=== PATIENT | male | born 1995 | race Caucasian/White ===

== ENCOUNTER 2021-12-19 17:35 | Emergency (ER) | payer SELFPAY ==
--- NOTE | 2021-12-19 18:20 | EDPHYS ---
Physician Documentation [facility] Name: Taras Newman Age: 26 yrs Sex: Male : 1995 Arrival Date: 12/19/2021 Time: 17:36 Bed 11 Private MD: GAUDENCIO Physician Shahab Reyes HPI: 12/19 18:14 This 26 yrs old Male presents to ER via Ambulatory with complaints of Sore yadira Throat. 18:14 The patient presents with sore throat. The patient describes throat pain as constant. yadira Onset: The symptoms/episode began/occurred 2 day(s) ago. Severity of symptoms: At their worst the symptoms were mild, in the emergency department the symptoms are unchanged. Modifying factors: The symptoms are alleviated by nothing, the symptoms are aggravated by swallowing. Associated signs and symptoms: Pertinent positives: chills, cough, fever. The patient has experienced similar episodes in the past, a few times. Historical: - Allergies: 17:42 No Known Allergies; ld1 - Home Meds: 17:42 None [Active]; ld1 - PMHx: 17:42 None; ld1 - PSHx: 17:42 None; ld1 - Immunization history:: Adult Immunizations up to date, Client reports having NOT received the Covid vaccine. - Social history:: Smoking status: Patient denies any tobacco usage or history of. Patient/guardian denies using alcohol. - Family history:: not pertinent. ROS: 18:14 Constitutional: Negative for fever, chills, and weight loss, Eyes: Negative for injury, yadira pain, redness, and discharge, Neck: Negative for injury, pain, and swelling, Cardiovascular: Negative for chest pain, palpitations, and edema, Respiratory: Negative for shortness of breath, cough, wheezing, and pleuritic chest pain, Abdomen/GI: Negative for abdominal pain, nausea, vomiting, diarrhea, and constipation, Back: Negative for injury and pain, : Negative for injury, bleeding, discharge, and swelling, MS/Extremity: Negative for injury and deformity, Skin: Negative for injury, rash, and discoloration, Neuro: Negative for headache, weakness, numbness, tingling, and seizure, Psych: Negative for depression, anxiety, suicide ideation, homicidal ideation, and hallucinations, Allergy/Immunology: Negative for hives, rash, and allergies, Endocrine: Negative for neck swelling, polydipsia, polyuria, polyphagia, and marked weight changes, Hematologic/Lymphatic: Negative for swollen nodes, abnormal bleeding, and unusual bruising. 18:14 ENT: Positive for sore throat. Exam: 18:14 Constitutional: This is a well developed, well nourished patient who is awake, alert, yadira and in no acute distress. Head/Face: Normocephalic, atraumatic. Eyes: Pupils equal round and reactive to light, extra-ocular motions intact. Lids and lashes normal. Conjunctiva and sclera are non-icteric and not injected. Cornea within normal limits. Periorbital areas with no swelling, redness, or edema. Neck: Trachea midline, no thyromegaly or masses palpated, and no cervical lymphadenopathy. Supple, full range of motion without nuchal rigidity, or vertebral point tenderness. No Meningismus. Chest/axilla: Normal chest wall appearance and motion. Nontender with no deformity. No lesions are appreciated. Cardiovascular: Regular rate and rhythm with a normal S1 and S2. No gallops, murmurs, or rubs. Normal PMI, no JVD. No pulse deficits. Respiratory: Lungs have equal breath sounds bilaterally, clear to auscultation and percussion. No rales, rhonchi or wheezes noted. No increased work of breathing, no retractions or nasal flaring. Abdomen/GI: Soft, non-tender, with normal bowel sounds. No distension or tympany. No guarding or rebound. No evidence of tenderness throughout. Back: No spinal tenderness. No costovertebral tenderness. Full range of motion. Skin: Warm, dry with normal turgor. Normal color with no rashes, no lesions, and no evidence of cellulitis. MS/ Extremity: Pulses equal, no cyanosis. Neurovascular intact. Full, normal range of motion. Neuro: Awake and alert, GCS 15, oriented to person, place, time, and situation. Cranial nerves II-XII grossly intact. Motor strength 5/5 in all extremities. Sensory grossly intact. Cerebellar exam normal. Normal gait. Psych: Awake, alert, with orientation to person, place and time. Behavior, mood, and affect are within normal limits. 18:14 ENT: Posterior pharynx: Airway: normal, no evidence of obstruction, Tonsils: bilaterally enlarged, with erythema, with exudate, Uvula: normal, midline, swelling, that is mild, erythema, that is mild, exudate, is not appreciated, peritonsillar mass, is noted on the right, pooling of secretions, is not appreciated. Vital Signs: 17:41 Weight 66.68 kg; Height 6 ft. 0 in. (182.88 cm); Pain 0/10; ld1 17:49 BP 129 / 68; Pulse 80; Resp 18; Temp 98.4; Pulse Ox 100% on R/A; em6 17:41 Body Mass Index 19.94 (66.68 kg, 182.88 cm) ld1 MDM: 17:37 [facility]17 Differential diagnosis: group A strep tonsillitis, influenza, laryngitis, pharyngitis, yaidra tonsillitis, upper respiratory infection, uvulitis, viral syndrome. Data reviewed: vital signs, nurses notes, lab test result(s), Flu:. 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 rate is 80 beats/min, rhythm is normal sinus rhythm, Pulse oximetry: on room air is 100 %. Counseling: I had a detailed discussion with the patient and/or guardian regarding: the historical points, exam findings, and any diagnostic results supporting the discharge/admit diagnosis, lab results. 12/19 17:43 Order name: Flu [facility] 12/19 17:43 Order name: Strep [facility] 12/19 17:43 Order name: SARS-COV-2 RT PCR (Document "Date of Onset" if Symptomatic) [facility] 12/19 18:19 Order name: Throat Culture EDMS Administered Medications: 18:22 Drug: Zithromax (azithromycin) 500 mg Route: PO; em6 18:37 Follow up: Response: No adverse reaction em6 18:22 Drug: Rocephin (cefTRIAXone) 1 grams Route: IM; Site: right gluteus; em6 18:37 Follow up: Response: No adverse reaction em6 Disposition Summary: 12/19/21 18:18 Discharge Ordered Location: Home yadira Problem: new yadira Symptoms: have improved yadira Condition: Stable yadira Diagnosis - Acute tonsillitis, unspecified yadira - Acute pharyngitis, unspecified yadira Followup: yadira - With: Private Physician - When: 2 - 3 days - Reason: Recheck today's complaints, Continuance of care, Re-evaluation by your physician Discharge Instructions: - Discharge Summary Sheet yadira - Pharyngitis yadira - Sore Throat yadira - Tonsillitis yadira - Tonsillitis, [id number] yadira - Sore Throat, [id number] yadira Forms: - Medication Reconciliation Form yadira - Thank You Letter yadira - Antibiotic Education yadira - Prescription Opioid Use ydaira Prescriptions: - Zithromax 500 mg Oral Tablet - take 1 tablet by ORAL route once daily for 4 days; 4 tablet; Refills: 0, yadira Product Selection Permitted Signatures: Dispatcher [employer] EDShahab Mo MD MD cha Dibbern, Lauren, RN RN ld1 Maria M Ring RN RN em6
--- NOTE | 2021-12-19 18:20 | ER ---
Nurse's Notes [facility] Name: Taras Newman Age: 26 yrs Sex: Male : 1995 Arrival Date: 12/19/2021 Time: 17:36 Bed 11 Private MD: Diagnosis: Acute tonsillitis, unspecified;Acute pharyngitis, unspecified Presentation: 12/19 17:41 Chief complaint: Patient states: Sore throat X 3 days, fatigue, chills. Coronavirus ld1 screen: Client presents with at least one sign or symptom that may indicate coronavirus-19. Standard/surgical mask placed on the client. Ebola Screen: No symptoms or risks identified at this time. Initial Sepsis Screen: Does the patient meet any 2 criteria? No. Patient's initial sepsis screen is negative. Does the patient have a suspected source of infection? No. Patient's initial sepsis screen is negative. Risk Assessment: Do you want to hurt yourself or someone else? Patient reports no desire to harm self or others. Onset of symptoms was December 19, 2021 at 17:42. 17:41 Method Of Arrival: Ambulatory ld1 17:41 Acuity: TIM 4 ld1 Triage Assessment: 17:42 General: Appears in no apparent distress. comfortable, Behavior is calm, cooperative, ld1 appropriate for age. Pain: Denies pain. EENT: Reports pain in uvula, left aspect of posterior pharynx and right aspect of posterior pharynx. Neuro: Level of Consciousness is awake, alert, obeys commands, Oriented to person, place, time, situation. Cardiovascular: Capillary refill < 3 seconds Patient's skin is warm and dry. Respiratory: Airway is patent Respiratory effort is even, unlabored. GI: Abdomen is flat, non-distended. : No signs and/or symptoms were reported regarding the genitourinary system. Derm: No signs and/or symptoms reported regarding the dermatologic system. Musculoskeletal: No signs and/or symptoms reported regarding the musculoskeletal system. Historical: - Allergies: 17:42 No Known Allergies; ld1 - Home Meds: 17:42 None [Active]; ld1 - PMHx: 17:42 None; ld1 - PSHx: 17:42 None; ld1 - Immunization history:: Adult Immunizations up to date, Client reports having NOT received the Covid vaccine. - Social history:: Smoking status: Patient denies any tobacco usage or history of. Patient/guardian denies using alcohol. - Family history:: not pertinent. Screenin:47 Abuse screen: Denies threats or abuse. Nutritional screening: No deficits noted. em6 Tuberculosis screening: No symptoms or risk factors identified. Fall Risk Total Doty Fall Scale indicates No Risk (0-24 pts). Assessment: 17:47 Reassessment: see triage for assessment. Respiratory: Airway is patent Respiratory em6 effort is even, unlabored, Respiratory pattern is regular, symmetrical, Breath sounds are clear bilaterally. 17:47 EENT: Throat is reddened. em6 Vital Signs: 17:41 Weight 66.68 kg; Height 6 ft. 0 in. (182.88 cm); Pain 0/10; ld1 17:49 BP 129 / 68; Pulse 80; Resp 18; Temp 98.4; Pulse Ox 100% on R/A; em6 17:41 Body Mass Index 19.94 (66.68 kg, 182.88 cm) ld1 ED Course: 17:36 Patient arrived in ED. am2 17:37 Shahab Reyes MD is Attending Physician. [facility] 17:42 Triage completed. ld1 17:42 Arm band placed on right wrist. ld1 17:44 Maria M Ring, RN is Primary Nurse. em6 17:47 Bed in low position. Call light in reach. Side rails up X 1. Warm blanket given. em6 17:59 Strep Sent. em6 17:59 Flu Sent. em6 17:59 SARS-COV-2 RT PCR (Document "Date of Onset" if Symptomatic) Sent. em6 18:37 No provider procedures requiring assistance completed. Patient did not have IV access em6 during this emergency room visit. Administered Medications: 18:22 Drug: Zithromax (azithromycin) 500 mg Route: PO; em6 18:37 Follow up: Response: No adverse reaction em6 18:22 Drug: Rocephin (cefTRIAXone) 1 grams Route: IM; Site: right gluteus; em6 18:37 Follow up: Response: No adverse reaction em6 Medication: 18:37 VIS not applicable for this client. em6 Outcome: 18:18 Discharge ordered by . [facility] 18:37 Discharged to home ambulatory. em6 18:37 Condition: stable 18:37 Discharge instructions given to patient, Instructed on discharge instructions, follow up and referral plans. medication usage, Demonstrated understanding of instructions, follow-up care, medications, Prescriptions given X 1. 18:38 Patient left the ED. em6 Signatures: Shahab Reyes MD MD cha Moreno, Amanda am2 Halle Bermeo RN RN ld1 Maria M Ring RN RN em6 Corrections: (The following items were deleted from the chart) 18:37 17:49 BP 129 / 58; Pulse 80bpm; Resp 18bpm; Pulse Ox 100% RA; Temp 98.4F; em6 em6
[2021-12-19] MEDS ORDERED: AZITHROMYCIN 250 MG TAB ONE (18:23)
[2021-12-19] MEDS ORDERED: CEFTRIAXONE 1000 MG/VIAL ONE (18:24)
[2021-12-19] MEDS ORDERED: LIDOCAINE 1% MPF 2 ML AMPULE ONE (18:25)
[2021-12-19 19:03] VITALS: BP 129/68; TEMP 98.4; O2SAT 100
== END 2021-12-19 18:38 | disposition home or self-care (01) ==
LOC: ER 17:35
DX: J03.90 Acute tonsillitis, unspecified (principal); Z20.822 Contact with and (suspected) exposure to COVID-19
CPT/HCPCS: 87070; 87081; 87804; 96372; 99283; U0003